=== PATIENT | female | born 2005 | race Caucasian/White ===

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

== ENCOUNTER 2023-02-18 14:56 | Emergency (ER) | payer OTHER ==
[~2023-02-18] VITALS: Ht 149.9 cm; Wt 71.2 kg
[~2023-02-18 14:56] MED LIST: ACET-10509 PO; NAPR-1704 PO
[2023-02-18 15:03] VITALS: BP 138/88; PULSE 109; RESP 20; TEMP 98.4; O2SAT 98
[2023-02-18 16:03] LABS: BASOPHILS % (AUTO) 0.2 % (0.0-2.0); EOSINOPHILS % (AUTO) 0.2 % (0.0-4.0); HEMATOCRIT 38.5 % (36-48); HEMOGLOBIN 12.4 g/dL (12.0-16.0); LYMPHOCYTES # (AUTO) 2.7 K/uL (2.5-16.5); LYMPHOCYTES % (AUTO) 20.6 % (20.5-51.1); MEAN CORPUSCULAR HEMOGLOBIN 29 pg (27-31); MEAN CORPUSCULAR HGB CONC 32 g/dL (33-37); MEAN CORPUSCULAR VOLUME 89.8 fL (80-94); MONOCYTES # (AUTO) 0.9 K/uL (0.8-1.0); MONOCYTES % (AUTO) 7.1 % (1.7-9.3); NEUTROPHILS # (AUTO) 9.3 K/uL (1.8-7.7); NEUTROPHILS % (AUTO) 71.9 % (42.2-75.2); PLATELET COUNT (AUTO) 352 K/uL (140-450); RED BLOOD CELL COUNT(AUTO) 4.28 MIL/uL (4.20-5.40); RED CELL DISTRIBUTION WIDTH 13.8 % (11.6-13.7)
[2023-02-18 16:30] LABS: ALBUMIN 3.6 g/dL (3.4-5.0); ANION GAP 13.5 (8-16); CARBON DIOXIDE 26.5 mmol/L (21-32); CREATININE 0.8 mg/dL (0.6-1.3); TOTAL BILIRUBIN 0.4 mg/dL (0.0-1.0)
[2023-02-18] MEDS ORDERED: HYDROcodone/APAP 5/325 MG 1 TAB TAB PO ONE (16:45)
[2023-02-18] MEDS ORDERED: ONDANSETRON 4 MG ODT PO ONE (16:45)
[2023-02-18] MEDS ORDERED: ACET-8905 PO (19:19)
[2023-02-18] MEDS ORDERED: BEN10 PO (19:19)
[2023-02-18] MEDS ORDERED: ONDA-188 PO (19:19)
[2023-02-18 19:25] VITALS: BP 118/78; PULSE 82; RESP 16; TEMP 208.4; O2SAT 98
--- NOTE | 2023-02-18 19:25 | NUR ---
Patient discharged with v/s stable. Written and verbal after care instructions given and explained. Patient alert, oriented and verbalized understanding of instructions. Ambulatory with steady gait. All questions addressed prior to discharge. ID band removed. Patient advised to follow up with PMD. Rx of hydrocodon,bentyl,zofran odt given. Patient educated on indication of medication including possible reaction and side effects. Opportunity to ask questions provided and answered.
== END 2023-02-18 19:25 | disposition home or self-care (01) ==
LOC: MED 14:56
DX: I88.0 Nonspecific mesenteric lymphadenitis (principal); Z79.899 Other long term (current) drug therapy; Z79.1 Long term (current) use of non-steroidal anti-inflammatories (NSAID)
CPT/HCPCS: 36415; 74176; 80053; 81002; 81025; 83690; 85025; 99284; Q0162